=== PATIENT | female | born 1990 | race Caucasian/White ===

== ENCOUNTER → 2020-08-14 | Outpatient (CLI) | payer OTHER ==
--- NOTE | 2020-08-14 15:17 | REP ---
INDICATION: N63.10 LUMP OF R BREAST. COMPARISON: None TECHNIQUE: Real-time sonographic evaluation of right breast performed. FINDINGS: In the region 9 o'clock right breast at the site of the palpable lump there are 3 nodules present. A hypoechoic solid-appearing nodule is taller than wide with heterogeneously hypoechoic echotexture and some degree of distal acoustic shadowing, measuring 1.0 x 0.7 x 0.4 cm. Adjacent to that there is an oval nodule 1.4 x 1.3 x 0.4 cm. These nodules are about 4 cm from the nipple. In that same area approximately 5 cm from the nipple there is a larger lobulated heterogeneous mass with hypervascularity internally with Doppler evaluation. This measures 4.6 x 3.0 x 4.7 cm. IMPRESSION: BIRADS/ACR category 4 suspicious. Three solid nodules in the 9 o'clock region of the right breast as discussed in detail above. Recommend ultrasound-guided sampling. RECOMMENDATION: Recommend ultrasound-guided biopsy. <Electronically signed by Pillo Benoit > 08/14/20 [id number]
== END ==
LOC: M WHC 13:01
PROVIDERS: ATTEND Nurse Practitioner Family
DX: N63.10 Unspecified lump in the right breast, unspecified quadrant (principal)

== ENCOUNTER → 2020-08-21 | Outpatient (CLI) | payer OTHER ==
[~2020-08-21] MED LIST: B-12100021 PO; NOXI1TAB PO; VITMTA PO
--- NOTE | 2020-08-21 15:10 | REP ---
INDICATION: ORLIN BREAST MASS,RT PALPABLE LYMPH NODE; LT BREAST PALP MASSES. COMPARISON: Ultrasound 08/14/2020. TECHNIQUE: MLO and CC views of bilateral breasts performed with tomosynthesis and bilateral spot compression views. A palpable lump in the upper-outer quadrant of the right breast, a palpable lump in the superior left breast and another in the inferior left breast are all marked on the skin. Focused bilateral breast ultrasound performed in these regions. FINDINGS: Moderate fibroglandular tissue is scattered bilaterally. In the upper outer quadrant of the right breast a lobulated mass has a maximum diameter of approximately 4.5 cm. In the left breast at 12 o'clock there are 2 nodules identified which are fairly well-circumscribed, a 2 cm nodule is located approximately 6 cm from the nipple, and a 1.4 cm nodule is located approximately 8 cm from the nipple. There is an oval fairly well-circumscribed nodule at 6 o'clock in the left breast which measures 1.5 cm in maximum diameter and is located about 6-7 cm from the nipple. Focused bilateral breast ultrasound is performed. In the upper outer quadrant of the right breast at the site of the mass on the mammogram there is a heterogeneous hypoechoic and solid-appearing mass which measures 4.5 cm in diameter. It is located approximately 5 cm from the nipple. Two solid-appearing oval nodules are seen in this region, both 4 cm from the nipple, measuring 5 x 12 x 10 mm and 11 x 12 x 4 mm. The 5 x 12 x 10 mm nodule has a taller than wide appearance. In the left breast at 12 o'clock, there is a 5 mm cyst. There is a nodule with diffuse internal echoes 11 x 19 x 8 mm, 6 cm from the nipple and possibly representing a complex cyst. There is an adjacent hypoechoic nodule 6 x 9 x 6 mm also in the 12 o'clock position 6 cm from the nipple. At the 6 o'clock position 6 cm from the nipple there is a hypoechoic nodule with internal blood flow measuring 14 x 9 x 5 mm. The Volpara volumetric breast density pattern is B. IMPRESSION: BIRADS/ACR category 4 suspicious mammogram and ultrasound right breast. A dominant lobulated mass in the upper-outer quadrant of the right breast measures 4.5 cm in diameter. Recommend ultrasound-guided biopsy. Adjacent to this there are 2 nodules which appear solid. One has a taller than wide appearance measuring 5 x 12 x 10 mm. Recommend ultrasound-guided biopsy of that nodule. In the left breast at 12 o'clock there is a subcentimeter cyst. There are 2 adjacent hypoechoic nodules which could represent complex cysts. There is a 6 o'clock solid nodule. This could represent a fibroadenoma, maximum diameter 1.4 cm. Recommend six-month follow-up ultrasound of the left breast to ensure stability of these findings. This patient's Tyrer-Cuzick lifetime breast cancer risk assessment score is 14.5%. This mammogram was interpreted with the aid of an FDA-approved computer-aided detection system. The patient states she had a clinical breast exam in August 2020. The patient letter being requested is M4. RECOMMENDATION: Recommend ultrasound-guided biopsy of 2 nodules in the upper-outer quadrant of the right breast. Recommend follow-up six-month ultrasound left breast as discussed in detail above. <Electronically signed by Pillo Benoit > 08/21/20 [id number]
--- NOTE | 2020-08-21 15:12 | REP ---
INDICATION: RT AXILLARY PALPABLE LYMPH NODE. COMPARISON: None. TECHNIQUE: Real-time sonographic evaluation of right axilla performed in the region of a palpable lump. FINDINGS: In the right axilla 3 lymph nodes are identified all demonstrating echogenic ramesh. May have a morphologically normal appearance with no significant cortical thickening. These measure 1.6 x 1.1 x 1.0 cm, 1.8 x 1.0 x 0.7 cm, and 1.7 x 1.3 x 0.8 cm. IMPRESSION: In the right axilla there are 3 morphologically normal appearing lymph nodes identified sonographically as discussed above. <Electronically signed by Pillo Benoit > 08/21/20 [id number]
== END ==
LOC: M WHC 11:13
PROVIDERS: ATTEND Surgery
DX: R59.9 Enlarged lymph nodes, unspecified (principal); N63.10 Unspecified lump in the right breast, unspecified quadrant; N63.20 Unspecified lump in the left breast, unspecified quadrant
CPT/HCPCS: 76642; 76882; 77066; G0279

== ENCOUNTER → 2020-08-27 | Outpatient (CLI) | payer OTHER ==
[2020-08-27 12:53] VITALS: BP 128/82
--- NOTE | 2020-08-27 15:36 | REP ---
INDICATION: RT BREAST LESIONS,US GUIDED BIOPSY. COMPARISON: Comparison is made with sonography and mammography August 21, 2020.. TECHNIQUE: Sonographic guidance. FINDINGS: Sonographic guidance is provided to Dr. Hoffman who performed ultrasound-guided needle biopsy procedure of 3 nodules seen sonographically in the right breast at approximately 9 o'clock. Two HydroMARK clips were placed. IMPRESSION: Sonographic guidance for ultrasound-guided needle biopsy procedure. Marker clip placement. <Electronically signed by Niels Hernandez > 08/27/20 [id number]
--- NOTE | 2020-08-29 22:41 | ROOPDOC ---
[facility] Report Of Operation Report of Operation DATE OF PROCEDURE: 08/27/20 DIAGNOSIS: right breast suspicious lesion PROCEDURE: Ultrasound guided biopsy of right breast suspicious lesions x3 with clips placement x2 and Left axillary skin punch biopsy SURGEON: Kesha Hurley BLOOD LOSS: minimal COMPLICATIONS: none Lidocaine 1% LOT [id number] Expiration 10/22 Sodium Bicarbonate 8.4% LOT [id number] Expiration 11/19 Hydromark clip LOT [id number] Expiration 05/23 SHAPE 3 (placed between right breast small superior and small inferior lesion at 9:00 4 CFN) Hydromark clip LOT [id number] Expiration 05/23 ( placed in right large lesion at 9:00 5CFN) Bx device: BARD [id number] x10 cm LOT [id number] Expiration 02/20 ( new device per each biopsy) Left breast punch biopsy: 6 mm Informed consent was obtained. The most common risk and possible complications including bleeding, hematoma, bruising, infection, injury to surrounding structures were explained to the patient and the patient expressed understanding. Patient was placed on the bed in the supine position. Appropriate time out was done stating patients name, date of , and the procedure to be performed. The right breast was prepped and draped in the usual fashion. The ultrasound was used to confirm the location of two suspicious lesion at 9:00 4CFN superior and inferior, and the third large lesion at 9:00 5 CFN. Our attention was first focused on the right breast 9:00 4 CFN lesions. Plain Lidocaine 1% and 8.4% sodium bicarbonate 10:1 mix was used to anesthetize the skin, the biopsy site and tissues along the anticipated biopsy tract. Small skin incision was made with blade number 11. BARD Marquee 14G cannula with introducer ([id number]) was inserted through the incision and advanced under the ultrasound guidance to position immediately adjacent to the superior lesion. Next, the introducer was removed and BARD Marquee 14G biopsy device was places in the cannula. Pre-biopsy imaging, and post-biopsy imaging were captured. Five good core biopsies were taken at various levels of the lesion. Specimen was placed in formaldehyde, labeled with right breast small superior lesion and patients name, and sent to pathology for evaluation. The biopsy canula was removed and the pressure was held to achieve adequate hemostasis. Next, some additional anesthetic was used to anesthetize tissue adjacent to the inferior 9:00 4 CFN lesion. New BARD Marquee 14G cannula with introducer ([id number]) was inserted through the previous incision and advanced under the ultrasound guidance to position immediately adjacent to the inferior lesion. Next, the introducer was removed and BARD Marquee 14G biopsy device was places in the cannula. Pre-biopsy imaging, and post-biopsy imaging were captured. Five good core biopsies were taken at various levels of the lesion. Specimen was placed in formaldehyde, labeled with right breast small inferior lesion and patients name, and sent to pathology for evaluation. At this time, the biopsy device was withdrawn and a clip introducer was inserted into the space immediately adjacent the superior and inferior small right breast lesion at 9:00 4 CFN. The SHAPE 3 Hydromark clip was deployed under sonographic guidance. Post-clip placement image was captured. Manual pressure over the biopsy cavity and tract was held after the clip introducer was withdrawn. No bleeding was noted upon removal of the pressure. Next, our attention was turned toward the larger lesion in the right breast located at 9:00 5 CFN. Additional anesthetic was injected to anesthetize tissues in the planned biopsy track and the tissue adjacent to the mass. Previous inc ision site was used to insert new BARD Marquee 14G cannula with introducer ([id number]) and position it under the ultrasound guidance immediately adjacent to the large lesion. Next, the introducer was removed and BARD Marquee 14G biopsy device was places in the cannula. Pre-biopsy imaging, and post-biopsy imaging were captured. Five good core biopsies were taken at various levels of the lesion. Specimen was placed in formaldehyde, right breast large mass and patients name, and sent to pathology for evaluation. Next, the biopsy device was withdrawn and a clip introducer was inserted into the biopsy site via the cannula. The SPAHE 4 Hydromark clip was deployed under sonographic guidance. Post-clip placement image was captured. Manual pressure over the biopsy cavity and tract was held after the clip introducer was withdrawn. No bleeding was noted upon removal of the pressure. No mammogram was done after the biopsy as the clip deployment was clearly seen on the sonography and since patient is 30 years old. Steri strips were placed. At this time our attention was turned toward left axilla which was prepped and draped in the usual fashion. Plain Lidocaine 1% and 8.4% sodium bicarbonate 10:1 mix was used to anesthetize the skin at the biopsy site. 6 mm punch biopsy device was used to take a sample at the site of suspicious skin changes. Specimen was placed in formaldehyde, labeled with left axillary skin and patients name, and sent to pathology for evaluation. The skin defect was closed with 3-0 chromic suture. Steri strips were placed over the site at the end of the procedure. Postprocedural dressing was placed. Patient tolerated procedure well. Discharge instructions were discussed with the patient and she expressed understanding. KESHA HURLEY DO Aug 29, 2020 22:41
== END ==
LOC: M WHCPRO 10:50
PROVIDERS: ATTEND Surgery
DX: D24.1 Benign neoplasm of right breast (principal); L21.9 Seborrheic dermatitis, unspecified

== ENCOUNTER → 2020-09-11 | Outpatient (REF) | payer OTHER ==
[2020-09-11 14:08] LABS: MEAN CORPUSCULAR HEMOGLOBIN 26.1 pg (27.0-33.0); MEAN CORPUSCULAR VOLUME 84.3 fl (80.0-96.0); PLATELET COUNT, AUTOMATED 328 10^3/uL (150-450); RED BLOOD COUNT 4.98 10^6/uL (4.00-5.40)
[2020-09-11 14:46] LABS: BLOOD UREA NITROGEN 11 MG/DL (7-18); CALCIUM LEVEL 9.1 MG/DL (8.5-10.1); CARBON DIOXIDE LEVEL 29 MEQ/L (21-32); CHLORIDE LEVEL 102 MEQ/L (98-107); CREATININE FOR GFR 0.71 MG/DL (0.55-1.30); GLOMERULAR FILTRATION RATE > 60.0 (>60); GLUCOSE, FASTING 106 MG/DL (70-100); POTASSIUM SERUM 4.4 MEQ/L (3.5-5.1); SODIUM LEVEL 140 MEQ/L (136-145)
== END ==
LOC: M SFHCPLAZ 10:24
PROVIDERS: ATTEND Family Medicine
DX: Z01.818 Encounter for other preprocedural examination (principal)

== ENCOUNTER → 2020-09-13 | Outpatient (CLI) | payer OTHER | LOC: M LABSMTC 10:46 | PROVIDERS: ATTEND Anesthesiology | DX: Z01.812 Encounter for preprocedural laboratory examination (principal); Z20.822 Contact with and (suspected) exposure to COVID-19 ==

== ENCOUNTER 2020-09-18 12:30 | Day surgery (SDC) | payer OTHER ==
[~2020-09-18] VITALS: Ht 160 cm; Wt 77.1 kg
[~2020-09-18 12:30] MED LIST changes: +HEPARIN SOD (PORCINE) 5000UNITS/ML 1ML VIAL/SYRINGE SQ ONE; +LR 1,000 ML IV ONE; +ceFAZolin SOD 2 GM in IV 1 EA IV ONE
[2020-09-18] MEDS ORDERED: BUPIVACAINE HCL 0.25% 10ML VIAL As Ordered ONE (14:17)
[2020-09-18] MEDS ORDERED: LIDOCAINE 1% MDV 20ML VIAL As Ordered ONE (14:17)
[2020-09-18] MEDS ORDERED: dexameTHASONE 4 MG/ML 1ML VIAL (J1100 PER 1MG) As Ordered ONE (14:33)
[2020-09-18] MEDS ORDERED: METOCLOPRAMIDE INJ 10MG/2ML VIAL (J2765 PER 1) As Ordered ONE (14:33)
[2020-09-18] MEDS ORDERED: propofoL 200 MG/20 ML VIAL As Ordered ONE ×2 (14:33→14:49)
[2020-09-18] MEDS ORDERED: MIDAZOLAM INJ 2MG/2ML VIAL (J2250 PER 1MG) As Ordered ONE (14:33)
[2020-09-18] MEDS ORDERED: LIDOCAINE 2% 100MG/5ML SDV (FOR ANES.) As Ordered ONE (14:33)
[2020-09-18] MEDS ORDERED: ONDANSETRON 4MG/2ML VIAL As Ordered ONE (14:33)
[2020-09-18] MEDS ORDERED: fentaNYL 250 MCG/5 ML INJECTION (J3010) As Ordered ONE (14:33)
[2020-09-18] MEDS ORDERED: DESFLURANE 240 ML INHALANT As Ordered ONE (14:53)
[2020-09-18] MEDS ORDERED: ePHEDrine SULFATE 25 MG/5 ML(5MG/ML) SYRINGE As Ordered ONE (15:26)
[2020-09-18] MEDS ORDERED: ONDANSETRON 4MG/2ML VIAL IV PRN (16:45)
[2020-09-18] MEDS ORDERED: fentaNYL 100 MCG/2 ML INJECTION (J3010) IV PRN (16:45)
[2020-09-18] MEDS ORDERED: LR 1,000 ML IV SCH (16:45)
[2020-09-18] MEDS ORDERED: oxyCODONE 5MG TAB PO PRN (16:45)
[2020-09-18] MEDS ORDERED: ROXI1TAB2 PO (16:49)
--- NOTE | 2020-09-18 18:22 | REP ---
INDICATION: RIGHT BREAST EXCISIONAL BIOPSY. COMPARISON: Comparison mammography 21 August 2020.. TECHNIQUE: 4 radiographs of the excised specimen are presented. FINDINGS: A HydroMARK clip marker device is seen adjacent to the specimen on the radiographs. No microcalcification is seen. The specimen appears to conform to the size and configuration of the large soft tissue mass seen mammographically on 21 August 2020. IMPRESSION: Specimen radiograph demonstrates the marker clip device and the excised mass in the specimen. <Electronically signed by Niels Hernandez > 09/18/20 [id number]
[2020-09-18 18:25] VITALS: BP 140/90
--- NOTE | 2020-09-20 23:04 | ROOPDOC ---
[facility] Report Of Operation Report of Operation DATE OF PROCEDURE: 09/18/20 PREPROCEDURE DIAGNOSES: Right breast phyllodes POSTPROCEDURE DIAGNOSES: same PROCEDURE: Right breast excisional biopsy of 47x42 mm mass SURGEON: Ada Hurley ANESTHESIA: general ESTIMATED BLOOD LOSS: Approximately 50 mL. COMPLICATIONS: none REMARKS: hydromark clip identified DESCRIPTION OF PROCEDURE: INDICATIONS: Ms. Adrianne Tinsley is a 30-year-old woman who was found to have a large right breast palpable mass. This was evaluated with diagnostic imaging and BIRADS4 category was assigned. Biopsy was recommended. She underwent US guided biopsy of the mass. 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 Excisional biopsy of the right breast was offered to the patient. Risks and possible complications of surgical procedure including bleeding, infection and injury to surrounding structures were explained to the patient and she wished to proceed. Consent was signed. My initials were placed on the operative site. Subcutaneous injection of 5000 units of heparin was done in Preop. DETAILS: Patient was taken to the operating room and placed on the operating room table. A sign in was called stating patients name, date of and the procedure to be done. Preoperative antibiotics were infused. Smooth induction of general anesthesia was done. Patients hands were extended on arm rests. Care was taken not to over extend the arms. Pillow was placed under the knees and a foam was placed under the heels. Sequential compression devices were placed and assured to function correctly. Next, patients right breast and axilla were prepped and draped in the usual fashion. Appropriate time out was done again prior second part of the procedure. Patients name, date of , and the procedure to be done were confirmed. Next, local anesthetic using 1% lidocaine and 0.25 % Marcaine 50/50 mix was injected at the site of planned incision site at the lateral inframammary fold. The incision was made with the scalpel. Subcutaneous skin flaps were raised. Intraoperative ultrasound and palpation were used to guide the dissection toward the 9:00 area of the right breast where the large right breast mass was located. Sharp and blunt dissections were used to free the mass from the surrounding tissues. Upon dissection hydromark clip was noted at the edge of the mass and was carefully removed to prevent dislodgment. Mass capsule was noted and anchoring suture with silk stitch were placed at the inferior aspect of the mass. Due to manipulation of the mass some of the suture cut through the mass and the capsule which may explain why the inferior margin may be positive. Upon the mass from the surrounding tissues, the excisional biopsy specimen was carefully removed from the breast keeping its proper orientation and moved to the back table where margins were marked with the surgical inking kit following the standard colors recommendations. The mass measured 47 mm x 42 mm. Specimen was then placed on the grid and placed in [employer] [facility]imen [facility] System. Hydromark clip was placed next to the mass . The image revealed the large dense breast mass in addition to hydromark clip located outside of the mass. The specimen was labeled with patients name and right excisional biopsy and sent to pathology. Next, the wound was irrigated thoroughly and adequate hemostasis was assured. Additional local anesthetic was injected into surrounding tissues. space was approximated with 2-0 Vicryl. The dermis was closed with 3-0 Vicryl and skin was closed with 4-0 Monocryl. Surgical glue was placed over the incision. Patient emerged from the anesthesia without any problems. Fluffs were placed over the operative site and patients chest was wrapped snuggly in the KEYSHA wrap. Sponge and instrument counts were done and were correct. Patient tolerated procedure well and was taken to recovery unit in stable condition. ADA HURLEY DO Sep 20, 2020 23:04
== END 2020-09-18 18:25 | disposition home or self-care (01) ==
LOC: M SDC 12:30
PROVIDERS: ATTEND Surgery
DX: D48.61 Neoplasm of uncertain behavior of right breast (principal); D24.1 Benign neoplasm of right breast; N63.22 Unspecified lump in the left breast, upper inner quadrant; K21.9 Gastro-esophageal reflux disease without esophagitis; R07.9 Chest pain, unspecified; R59.9 Enlarged lymph nodes, unspecified; R23.4 Changes in skin texture
CPT/HCPCS: 19125; 36415; 81025; 86850; 86900; 86901; 88305; J0690; J1100; J1644; J2250; J2405; J2765; J3010

== ENCOUNTER → 2020-10-31 | Outpatient (REF) | payer OTHER ==
[~2020-10-31] MED LIST changes: -HEPARIN SOD (PORCINE) 5000UNITS/ML 1ML VIAL/SYRINGE SQ ONE; -LR 1,000 ML IV ONE; +ROXI1TAB2 PO; -ceFAZolin SOD 2 GM in IV 1 EA IV ONE
== END ==
LOC: M SFHCWAGY 13:22
PROVIDERS: ATTEND Surgery
DX: T81.89XA Other complications of procedures, not elsewhere classified, initial encounter (principal)

== ENCOUNTER → 2020-11-14 | Outpatient (CLI) | payer OTHER ==
[~2020-11-14] MED LIST changes: +CLIN150C15 PO
== END ==
LOC: M LABSMTC 12:44
PROVIDERS: ATTEND Anesthesiology
DX: Z01.812 Encounter for preprocedural laboratory examination (principal); Z20.822 Contact with and (suspected) exposure to COVID-19

== ENCOUNTER 2020-11-18 12:52 | Day surgery (SDC) | payer OTHER ==
[~2020-11-18] VITALS: Ht 160 cm; Wt 77.6 kg
[~2020-11-18 12:52] MED LIST changes: +HEPARIN SOD (PORCINE) 5000UNITS/ML 1ML VIAL/SYRINGE SQ ONE; +LR 1,000 ML IV ONE; +ceFAZolin SOD 2 GM in IV 1 EA IV ONE
[2020-11-18] MEDS ORDERED: propofoL 200 MG/20 ML VIAL As Ordered ONE (15:58)
[2020-11-18] MEDS ORDERED: LIDOCAINE 2% 100MG/5ML SDV (FOR ANES.) As Ordered ONE (15:58)
[2020-11-18] MEDS ORDERED: MIDAZOLAM INJ 2MG/2ML VIAL (J2250 PER 1MG) As Ordered ONE (16:00)
[2020-11-18] MEDS ORDERED: fentaNYL 100 MCG/2 ML INJECTION (J3010) As Ordered ONE (16:00)
[2020-11-18] MEDS ORDERED: LIDOCAINE 1% SDV 30ML VIAL As Ordered ONE (16:02)
[2020-11-18] MEDS ORDERED: BUPIVACAINE HCL 0.25% 30ML VIAL As Ordered ONE ×2 (16:02→16:29)
[2020-11-18] MEDS ORDERED: dexameTHASONE 4 MG/ML 1ML VIAL (J1100 PER 1MG) As Ordered ONE (16:33)
[2020-11-18] MEDS ORDERED: ONDANSETRON 4MG/2ML VIAL As Ordered ONE (16:33)
[2020-11-18] MEDS ORDERED: ePHEDrine SULFATE 25 MG/5 ML(5MG/ML) SYRINGE As Ordered ONE (16:43)
[2020-11-18] MEDS ORDERED: ACETAMINOPHEN 1000MG 100ML IV BTL (OFIRMEV) (J0131 PER 10MG) As Ordered ONE (16:58)
[2020-11-18] MEDS ORDERED: LACRILUBE (AKWA TEARS) OPHTH OINT 3.5 GM As Ordered ONE (17:02)
[2020-11-18] MEDS ORDERED: ONDANSETRON 4MG/2ML VIAL IV PRN (17:45)
[2020-11-18] MEDS: fentaNYL 100 MCG/2 ML INJECTION (J3010) IV PRN ×4 (17:45→18:25)
[2020-11-18] MEDS ORDERED: LR 1,000 ML IV SCH (17:45)
[2020-11-18] MEDS ORDERED: oxyCODONE 5MG TAB PO PRN (17:45)
[2020-11-18 20:00] VITALS: BP 140/88
--- NOTE | 2020-11-25 13:16 | ROOPDOC ---
[facility] Report Of Operation Report of Operation DATE OF PROCEDURE: 11/18/20 PREPROCEDURE DIAGNOSES: Right breast nonhealing wound, HX of Right Phyllodes tumor POSTPROCEDURE DIAGNOSES: same PROCEDURE: Right breast wound exploration with debridement with wound closure and drain placement . SURGEON: Kesha Hurley ANESTHESIA: general ESTIMATED BLOOD LOSS: minimal COMPLICATIONS: none REMARKS: wound cultures collected DESCRIPTION OF PROCEDURE: INDICATIONS: Ms. Adrianne Tinsley is a 30-year-old woman who was found to have a large right breast palpable mass. This was evaluated with diagnostic imaging and BIRADS4 category was assigned. Biopsy was recommended. She underwent US guided biopsy of the mass. 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 Excisional biopsy of the right breast was offered to the patient. She underwent Right breast excisional biopsy on Sep 18. Phyllodes were completely excised but patient developed seroma leak from the incision site which caused difficulty in healing the wound. Drainage of the seroma and placing patient on abx did not help heal the wound. On 2 month postop followup, since the wound completely opened up, decision was done to take patient back to the OR for wound exploration, debridement and repeat closure. She underwent preop clearance prior to her index surgery. No additional medical clearance was needed. Risks and possible complications of surgical procedure including bleeding, infection and injury to surrounding structures were explained to the patient and she wished to proceed. Consent was signed. My initials were placed on the operative site. Subcutaneous injection of 5000 units of heparin was done in Preop. DETAILS: Patient was taken to the operating room and placed on the operating room table. A sign in was called stating patients name, date of and the procedure to be done. Preoperative antibiotics were infused. Smooth induction of general anesthesia was done. Patients hands were extended on arm rests. Care was taken not to over extend the arms. Pillow was placed under the knees and a foam was placed under the heels. Sequential compression devices were placed and assured to function correctly. Patients right breast and axilla were prepped and draped in the usual fashion. Appropriate time out was done again prior second part of the procedure. Patients name, date of , and the procedure to be done were confirmed. Previous incision site was found to be dehisced. The dehisced tissues at 0.5 cm margin was excised circumferentially and sent to pathology as a scar tissue. The wound was explored. Granulation tissue was seen. There were no fluid pockets upon palpation. There was no foul smell or purulent drainage either. Aerobic and anaerobic cultures were collected. The surface of the wound was curetted and the curetted tissue was sent to pathology for evaluation. Wound was irrigated with H202 and then with copious amount of normal saline. Next, local anesthetic using 1% lidocaine and 0.25 % Marcaine 50/50 mix was injected into the surrounding tissues. 15 Persian Felxi drain was placed in the wound and secured in place with suture at the incision site. The dermis was closed with 3-0 Vicryl and skin was closed with 4-0 Monocryl. In addition, interrupted 3-0 Proline sutures were placed to secure the wound. Fluffs were placed over the operative site and patients chest was wrapped sn uggly in the KEYSHA wrap. Sponge and instrument counts were done and were correct Patient emerged from the anesthesia without any problems. Patient tolerated procedure well and was taken to recovery unit in stable condition. KESHA HURLEY DO Nov 25, 2020 13:16
== END 2020-11-18 20:00 | disposition home or self-care (01) ==
LOC: M SDC 12:52
PROVIDERS: ATTEND Surgery
DX: T81.89XA Other complications of procedures, not elsewhere classified, initial encounter (principal); D48.60 Neoplasm of uncertain behavior of unspecified breast; D24.1 Benign neoplasm of right breast; R23.4 Changes in skin texture; R59.9 Enlarged lymph nodes, unspecified; R51.9 Headache, unspecified; Z79.899 Other long term (current) drug therapy
CPT/HCPCS: 19020; 36415; 81025; 86850; 86900; 86901; 87070; 87075; 87205; 88304; J0131; J0690; J1100; J1644; J2250; J2405; J3010

== ENCOUNTER → 2021-02-23 | Outpatient (CLI) | payer OTHER ==
[~2021-02-23] MED LIST changes: -HEPARIN SOD (PORCINE) 5000UNITS/ML 1ML VIAL/SYRINGE SQ ONE; -LR 1,000 ML IV ONE; -ceFAZolin SOD 2 GM in IV 1 EA IV ONE
--- NOTE | 2021-02-23 15:58 | REP ---
INDICATION: Follow-up COMPARISON: There are no prior reports to review other than a report made by Dr. Hernandez on 08/27/2020 which indicated 3 nodules with a HydroMARK clip placement at 9 o'clock in the right breast with no report on a left breast finding FINDINGS: In the right breast at 9 o'clock there is a surgical clip in place of a previous mass which was surgically excised. In the left breast at 12 o'clock there is a 1.93 cm sized solid nodule which is unchanged from the 08/21/2020 exam. In the left breast at 6 o'clock there is a 1.1 cm sized solid nodule which is unchanged from the 08/21/2020 exam shear wave elastography was performed on both of these nodules showing very low kPa values 1. IMPRESSION: 1. Status post right breast lumpectomy with surgical clips in place. 2. 2 solid left breast nodules which are unchanged as described above and probably benign. ACR category 3 additional six-month follow-up recommended. <Electronically signed by Marko Vaughn > 02/23/21 [id number]
== END ==
LOC: M WHC 14:26
PROVIDERS: ATTEND Surgery
DX: D24.1 Benign neoplasm of right breast (principal); N63.20 Unspecified lump in the left breast, unspecified quadrant

== ENCOUNTER → 2021-04-24 | Outpatient (CLI) | payer OTHER ==
[~2021-04-24] MED LIST changes: -CLIN150C15 PO; +CLIN150C17 PO
[2021-04-24 16:03] LABS: ALBUMIN 3.8 GM/DL (3.2-5.2); ALT/SGPT 48 U/L (12-78); BILIRUBIN,TOTAL 0.4 MG/DL (0.2-1.0); BLOOD UREA NITROGEN 9 MG/DL (7-18); CALCIUM LEVEL 8.9 MG/DL (8.5-10.1); CARBON DIOXIDE LEVEL 28 MEQ/L (21-32); CHLORIDE LEVEL 101 MEQ/L (98-107); CHOLESTEROL LEVEL 246 MG/DL (<200); CREATININE FOR GFR 0.61 MG/DL (0.55-1.30); GLOMERULAR FILTRATION RATE > 60.0 (>60); GLUCOSE, FASTING 92 MG/DL (70-100); HDL CHOLESTEROL 43 MG/DL (>40); NON-HDL-C 203 MG/DL; POTASSIUM SERUM 3.7 MEQ/L (3.5-5.1); SODIUM LEVEL 138 MEQ/L (136-145); TOTAL 25(OH) VITAMIN D 23.4 NG/ML (30.0-100.0); TRIGLYCERIDES LEVEL 705 MG/DL (<150)
== END ==
LOC: M PLALAB 12:00
PROVIDERS: ATTEND Nurse Practitioner Family
DX: E66.3 Overweight (principal); Z13.220 Encounter for screening for lipoid disorders; Z13.21 Encounter for screening for nutritional disorder

== ENCOUNTER → 2021-08-17 | Outpatient (CLI) | payer OTHER | LOC: M WHC 13:50 | PROVIDERS: ATTEND Nurse Practitioner Women's Health | DX: N63.20 Unspecified lump in the left breast, unspecified quadrant (principal); D48.60 Neoplasm of uncertain behavior of unspecified breast; D24.1 Benign neoplasm of right breast ==

== ENCOUNTER → 2021-10-14 | Outpatient (CLI) | payer OTHER ==
[2021-10-14 18:13] LABS: CHOLESTEROL LEVEL 255 MG/DL (<200); HDL CHOLESTEROL 38 MG/DL (>40); NON-HDL-C 217 MG/DL; TRIGLYCERIDES LEVEL 752 MG/DL (<150)
[2021-10-14 18:20] LABS: TOTAL 25(OH) VITAMIN D 28.3 NG/ML (30.0-100.0)
== END ==
LOC: M PLALAB 14:37
PROVIDERS: ATTEND Physician Assistant
DX: E55.9 Vitamin D deficiency, unspecified (principal); E78.1 Pure hyperglyceridemia

== ENCOUNTER → 2022-03-17 | Outpatient (CLI) | payer OTHER | LOC: M WHC 14:04 | PROVIDERS: ATTEND Nurse Practitioner Women's Health | DX: R92.8 Other abnormal and inconclusive findings on diagnostic imaging of breast (principal) ==

== ENCOUNTER → 2022-05-18 | Outpatient (CLI) | payer OTHER ==
[2022-05-18 11:57] LABS: BASO % 0.5 % (0.0-1.0); EOS # 0.1 10^3/uL (0.0-0.5); EOS % 1.7 % (0.0-3.0); HEMATOCRIT 42.1 % (36.0-47.0); HEMOGLOBIN 12.7 g/dl (12.0-15.5); LYMPH # 2.3 10^3/uL (1.5-5.0); LYMPH % 27.7 % (24.0-44.0); MEAN CORPUSCULAR HEMOGLOBIN 24.6 pg (27.0-33.0); MEAN CORPUSCULAR HGB CONC 30.2 g/dl (32.0-36.5); MEAN CORPUSCULAR VOLUME 81.4 fl (80.0-96.0); MONO # 0.5 10^3/uL (0.0-0.8); MONO % 5.3 % (2.0-8.0); NEUTROPHILS # 5.4 10^3/uL (1.5-8.5); NEUTROPHILS % 64.4 % (36.0-66.0); PLATELET COUNT, AUTOMATED 360 10^3/uL (150-450); RED BLOOD COUNT 5.17 10^6/uL (4.00-5.40); WHITE BLOOD COUNT 8.4 10^3/uL (4.0-10.0)
[2022-05-18 12:40] LABS: ALBUMIN 3.7 GM/DL (3.2-5.2); ALT/SGPT 152 U/L (12-78); BILIRUBIN,TOTAL 0.3 MG/DL (0.2-1.0); BLOOD UREA NITROGEN 8 MG/DL (7-18); CALCIUM LEVEL 8.8 MG/DL (8.5-10.1); CARBON DIOXIDE LEVEL 29 MEQ/L (21-32); CHLORIDE LEVEL 102 MEQ/L (98-107); CHOLESTEROL LEVEL 254 MG/DL (<200); CHOLESTEROL RISK RATIO 5.772 (<5); CREATININE FOR GFR 0.68 MG/DL (0.55-1.30); GLOMERULAR FILTRATION RATE > 60.0 (>60); GLUCOSE, FASTING 127 MG/DL (70-100); HDL CHOLESTEROL 44 MG/DL (>40); NON-HDL-C 210 MG/DL; POTASSIUM SERUM 3.8 MEQ/L (3.5-5.1); SODIUM LEVEL 138 MEQ/L (136-145); TRIGLYCERIDES LEVEL 411 MG/DL (<150)
[2022-05-18 13:22] LABS: TOTAL 25(OH) VITAMIN D 25.4 NG/ML (30.0-100.0)
== END ==
LOC: M PLALAB 07:47
PROVIDERS: ATTEND Physician Assistant
DX: E78.1 Pure hyperglyceridemia (principal); N92.0 Excessive and frequent menstruation with regular cycle; E55.9 Vitamin D deficiency, unspecified

== ENCOUNTER → 2022-06-11 | Outpatient (CLI) | payer OTHER | LOC: M WHC 07:49 | PROVIDERS: ATTEND Physician Assistant | DX: R74.8 Abnormal levels of other serum enzymes (principal) ==